=== PATIENT | male | born 1985 | race Caucasian/White ===

== ENCOUNTER 2019-11-15 01:25 | Emergency (ER) | payer MEDICAID ==
[~2019-11-15] VITALS: Ht 175.3 cm; Wt 88.5 kg
--- NOTE | 2019-11-15 01:25 | NUR ---
PT [facility]. TAKEN TO OF TENT
[2019-11-15 01:34] VITALS: BP 137/59
--- NOTE | 2019-11-15 01:38 | NUR ---
PT TRAIGED IN TENT. DR. TAYLOR MADE AWARE
--- NOTE | 2019-11-15 01:58 | NUR ---
Dr. Estevez examining patient.
[2019-11-15] MEDS ORDERED: IBUPROFEN 800 MG TAB PO ONE (02:10)
--- NOTE | 2019-11-15 02:17 | NUR ---
PT STATED HIS ARM HURTS TOO MUCH TO CHANGE INTO A GOWN
--- NOTE | 2019-11-15 02:21 | NUR ---
34 YEAR OLD MALE COMPLAINS OF RIGHT LEG AND RIGHT ARM PAIN X MORNING. PT STATES HE ALSO HAS HAD A FEVER, TRIAGE TEMPERATURE 101. PT AOX4, BREATHING EVEN AND UNLABORED, SKIN WARM AND DRY. BED IN LOWEST POSITION, LOCKED, BED RAIL UPX1. PT HAS NO OTHER COMPLAINTS AT THIS TIME. PMH - DENIES ALLERGIES - NKA Addendum: 11/15/19 at 0237 by [email or web address] PT DENIES TRAUMA, STATES THAT HE WOKE UP WITH THE PAIN.
--- NOTE | 2019-11-15 02:30 | NUR ---
XRAY AT BEDSIDE
--- NOTE | 2019-11-15 03:30 | NUR ---
sling applied by EMT. Pt radial pulse present +3, cap refill < 3 seconds.
[2019-11-15 03:40] VITALS: BP 105/68
--- NOTE | 2019-11-15 03:40 | NUR ---
Patient discharged with v/s stable. Written and verbal after care instructions about fever and myalgia given and explained. Patient alert, oriented and verbalized understanding of instructions. Ambulatory with steady gait. All questions addressed prior to discharge. ID band removed. Patient advised to follow up with PMD. Rx of motrin given. Patient educated on indication of medication including possible reaction and side effects. Opportunity to ask questions provided and answered.
== END 2019-11-15 03:40 | disposition home or self-care (01) ==
LOC: MED 01:25
DX: M79.601 Pain in right arm (principal); M79.651 Pain in right thigh; R50.9 Fever, unspecified; R03.0 Elevated blood-pressure reading, without diagnosis of hypertension
CPT/HCPCS: 71045; 73030; 73080; 73552; 99284; Q0092